=== PATIENT | male | born 1995 | race Caucasian/White ===

== ENCOUNTER 2018-10-14 08:00 | Emergency (ER) | payer OTHER, SELFPAY ==
[2018-10-14 08:00] VITALS: BP 140/89; PULSE 71; RESP 16; TEMP 36.8; O2SAT 99; BMI 29.5
--- NOTE | 2018-10-14 08:20 | ED_ITS ---
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 During his trip back he started to develop hives throughout his body. No shortness of breath no nausea vomiting no abdominal pain. He has been taking Benadryl which seems to help the hives however they do come back. He states he has not had a period of time where he has been completely symptom free but they do improve with the Benadryl and then worsened. He talk with his medical department who told him to come to the emergency department for further evaluation. Related Data Previous Rx's Medication Instructions Recorded loratadine [Claritin] 10 mg PO DAILY #30 tab 10/14/18 prednisone 40 mg PO DAILY 7 Days #14 tab 10/14/18 Allergies Allergy/AdvReac Type Severity Reaction Status Date / Time No Known Drug Allergies Allergy Verified 10/14/18 08:07 Review of Systems Constitutional Denies fever(s) Eyes Denies itchy eyes ENT Ears, Nose, Mouth, and Throat: Denies lip swelling, Denies throat swelling and Denies tongue swelling Cardiovascular Denies dyspnea Respiratory Denies dyspnea Gastrointestinal Gastrointestinal: Denies abdominal pain, Denies nausea and Denies vomiting Integumentary/Breasts Comments: Her to carry a Allergic/Immunologic Reports urticaria, Denies itchy eyes, Denies lip swelling, Denies throat swelling and Denies tongue swelling [facility] Medical History Healthy adult (Acute) Social History lives independently: Yes Social History lives independently: Yes Exam Initial Vital Signs Initial Vital Signs: Vital Signs Temperature 98.3 F 10/14/18 08:00 Pulse Rate 71 10/14/18 08:00 Respiratory Rate 16 10/14/18 08:00 Blood Pressure 140/89 10/14/18 08:00 Pulse Oximetry 99 10/14/18 08:00 Const General: cooperative, comfortable, well developed, well groomed and No acute distress Orientation: alert, awake and oriented x3 HENMT Head: normal to inspection and normocephalic Resp Effort & Inspection: normal respiratory effort Auscultation: clear to auscultation bilaterally Cardio Rate: regular rate Rhythm: regular rhythm Skin Other: Patient does have a small amount urticaria located on the back of his hands and on his lower abdomen. Neuro General: alert and awake Psych Appearance: grossly normal and well kempt Course Vital Signs - 8 hr 10/14/18 08:00 Temperature 98.3 F Pulse Rate 71 Respiratory Rate 16 Blood Pressure 140/89 Pulse Oximetry 99 MDM - Allergic Reaction MDM Narrative Medical decision making narrative: Patient with a allergic reaction. No signs of anaphylaxis. Unsure as to the exact etiology. I discussed this with him. He has had quite a bit of travel recently and I do suspect that his rash is environmental. Will start him on a course of some prednisone. Also start him on Claritin. Will have him follow up with his medical department. He was given return precautions. He expressed understanding and agreement with plan. Discharge Plan Departure Patient Disposition: Home Clinical Impression: Urticaria Allergic reaction Qualifiers: Encounter type: initial encounter Qualified Code(s): T78.40XA - Allergy, unspecified, initial encounter Instructions: DI for Hives Activity Restrictions/Additional Instructions: Take the medications as directed. Make sure you may contact with your medical department so that you can establish follow-up just InCase your symptoms do not improve. Return to the emergency department for any new or worsening symptoms Prescriptions: New prednisone 20 mg tablet 40 mg PO DAILY 7 Days Qty: 14 RF: 0 loratadine [Claritin] 10 mg tablet 10 mg PO DAILY Qty: 30 RF: 0
== END 2018-10-14 08:37 | disposition home or self-care (01) ==
PROVIDERS: Emergency Provider Emergency Medicine
DX: L50.9 Urticaria, unspecified (principal); T78.40XA Allergy, unspecified, initial encounter
CPT/HCPCS: 99282; 99283